=== PATIENT | female | born 1945 | race Caucasian/White ===

== ENCOUNTER 2024-03-05 09:56 | Day surgery (SDC) | payer OTHER, BC ==
[2024-02-29 11:10] VITALS: BMI 37.8
[2024-03-05] MEDS ORDERED: PHENYLEPHRINE 2.5% OPTHALMIC DROP 2ML BOTTLE ONE (10:26)
[2024-03-05] MEDS ORDERED: NEO/POLYMYX B SULF/DEXAMETH OPHTHALMIC 5ML BOTTLE ONE (10:47)
[2024-03-05] MEDS ORDERED: LIDOCAINE 1% P/F 10 MG/ML VIAL ONE (10:47)
[2024-03-05] MEDS ORDERED: BSS (NA/CA/MG/K) BALANCED SALT SOLUTION OPHTH SOLN 15 ML BOTTLE ONE (10:47)
[2024-03-05] MEDS ORDERED: CARBACHOL 0.01% INTRA-OCULAR 1.5 ML VIAL ONE (10:47)
[2024-03-05] MEDS: TROPICAMIDE 1% OPHTH SOLN 15 ML BOTTLE ONE (10:50)
[2024-03-05] MEDS: CYCLOPENTOLATE 2% OPHTH SOLN 2 ML BOTTLE ONE (10:50)
[2024-03-05] MEDS: CIPROFLOXACIN 0.3% EYE DROPS 5 ML BOTTLE ONE (10:50)
[2024-03-05 11:00] VITALS: RESP 19
[2024-03-05] MEDS ORDERED: MIDAZOLAM HCL 2 MG/2 ML SINGLE DOSE VIAL ONE (11:40)
[2024-03-05 13:09] VITALS: TEMP 97.4
[2024-03-05 13:16] VITALS: BP 124/57; PULSE 76
== END 2024-03-05 13:10 | disposition home or self-care (01) ==
LOC: FASU 09:56
PROVIDERS: ATTEND Ophthalmology
PROC: 08RJ3JZ Replacement of Right Lens with Synthetic Substitute, Percutaneous Approach (ICD-10-PCS; principal; 2024-03-05 12:13)
DX: H26.8 Other specified cataract (principal)
CPT/HCPCS: 66984; V2632; 82962